=== PATIENT | male | born 1960 | race Caucasian/White ===

== ENCOUNTER → 2019-08-29 | Outpatient (CLI) | payer BC, OTHER ==
[~2019-08-29] MED LIST: ALDACTONE25 MG PO; ASA5UEC; ASA5UEC PO; BACTROBAN NASAL1 GM NS; CIPRO250 M1 PO; COREG PO; DARVOCET-N 1001 EAC1 PO; EFFIENT10 MG PO; FISH OIL 1,0001 EAC7 PO; FISHOIL; FISHOIL PO; FUROSEMIDE 40 M40 MG PO; IMDUR 30 MG TAB30 M1 PO; KLOR-CON 10 ER10 MEQ PO; LASIX 40 MG TAB40 M1 PO; LIPITOR80 MG PO; NITROGLYCERIN0.4 MG SL; NITROQUICK0.4 MG SL; PERCOCET 5-3251 EACH PO; PHISOHEX148 ML TP; PLAVIX 75 MG TA75 MG PO; POTASSIUM20 PO; PROTONIX 20 MG20 MG PO; PROTONIX40 M2 PO; SENOKOT-S1 TA2 GT; SENOKOT-S1 TA2 PO
== END ==
LOC: CAT 13:44 → ULTRA 13:48
DX: I65.23 Occlusion and stenosis of bilateral carotid arteries (principal); I42.0 Dilated cardiomyopathy